=== PATIENT | female | born 1960 | race Caucasian/White ===

== ENCOUNTER 2021-02-25 19:01 | Emergency (ER) | payer OTHER, SELFPAY ==
[2021-02-25 19:03] VITALS: BP 135/79; PULSE 76; RESP 15; TEMP 36.7; O2SAT 98; BMI 27.2
--- NOTE | 2021-02-25 19:11 | EKG12_ITS ---
Test Reason : DYSRHYTHMIA Blood Pressure : / mmHG Vent. Rate : 068 BPM Atrial Rate : 068 BPM P-R Int : 170 ms QRS Dur : 080 ms QT Int : 396 ms P-R-T Axes : 059 048 067 degrees QTc Int : 421 ms Normal sinus rhythm Nonspecific T wave abnormality Abnormal ECG Confirmed by JULIO GÓMEZ, ANNMARIE ([id number]), state editor LUIS PETTIT ([id number]) on 02/28/2021 1:12:04 PM Referred By: JOAO Confirmed By:ANNMARIE KIM MD
--- NOTE | 2021-02-25 20:42 | EX.ED.UPPERE ---
HPI History of Present Illness Chief Complaint: Upper Extremity Injury Detail of Chief Complaint: No injury but the patient has shoulder pain. 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 She is also had a history of breast cancer with mastectomies. She had a DVT in the distant past is on no blood thinners. Several weeks ago she had a viral illness. Around 2 weeks ago she had a liver biopsy done at . Since that time she has had some right-sided abdominal pain. Then she does developed pleuritic chest pain when she was in [place] and was seen in the hospital in [facility]. Had a work-up that was reportedly negative for pulmonary emboli. She is now complaining of still having right-sided chest pain but also right shoulder pain and abdominal pain. Prior similar symptoms: No Recent Illness/Hospitalization: No PFSH PFSH Medical History Auto immune neutropenia Breast adenoma Hepatitis Home Medications Famvir 500 mg PO.IVFORM PRN PRN 02/25/21 [History Last Taken Unknown] cholestyramine-aspartame 4 g PO BID 02/25/21 [History Last Taken Unknown] gabapentin 100 mg PO QHS 02/25/21 [History Last Taken Unknown] hydrocodone-acetaminophen 1 tab PO Q4H PRN 4 Days #14 tab 02/25/21 [Rx Last Taken Unknown] ondansetron 4 mg PO Q8H #10 tab 02/25/21 [Rx Last Taken Unknown] ursodiol 600 mg PO DAILY 02/25/21 [History Last Taken Unknown] Allergy/AdvReac Type Severity Reaction Status Date / Time Opioids - Morphine Analogues AdvReac Vomiting Verified 02/25/21 19:03 Surgical History H/O total mastectomy of left breast H/O total mastectomy of right breast Hip joint replacement status Social History Smoking Status: Never smoker ROS ROS ED ROS Narrative Pleuritic chest pain. Abdominal pain. Review of Systems ROS Unobtainable: Denies due to encephalopathy Constitutional Constitutional ED: Denies chills or fever(s) Eyes Eyes: Denies change in vision ENT ENT ED: Denies ear pain or sore throat Cardiovascular Cardiovascular: Reports chest pain Respiratory/Chest Respiratory/Chest: Denies cough, dyspnea or sputum Gastrointestinal Gastrointestinal: Reports abdominal pain; Denies diarrhea, nausea or vomiting Genitourinary Genitourinary ED: Denies dysuria Musculoskeletal Musculoskeletal: Denies myalgias Integumentary Denies rash Neurologic Neurologic: Denies headache(s) Psychiatric Psychiatric: Denies depression Endocrine Endocrinology: Denies polyuria Hematologic/Lymphatic Hematologic/Lymphatic: Denies easy bruising Allergic/Immunologic Allergic/Immunologic ED: Denies urticaria EXAM Physical Exam Narrative Exam Narrative: 60-year-old female no acute distress. Vital signs stable afebrile. She does not look septic or toxic. H EENT exam unremarkable. Moist with memories. Neck nontender no lymphadenopathy. Lungs clear to auscultation bilaterally. Heart regular rate and rhythm rate about 75 no murmur. Chest wall nontender. Abdomen soft. She does have right-sided tenderness. No peritoneal signs. No signs of obstruction or distention. Normal bowel sounds. Patient moving all 4 extremities. Equal symmetrical radial pulses. Calves are nontender without edema or cords. Back nontender. Neurologically she is awake and alert. Const Vital Signs: 02/25/21 19:03 Temperature 98.0 F Temperature Source Temporal Pulse Rate 76 Respiratory Rate 15 Blood Pressure 135/79 H Blood Pressure Mean 97 Pulse Ox 98 Oxygen Delivery Method Room Air Positive well nourished and well developed; Negative for obese, cachectic, contractures or unkempt General Appearance ED: well developed and NAD; Negative for unkempt, cachectic or contractures Nutritional Appearance: Negative for cachectic or obese HEENT Reports moist mucous membranes normocephalic and atraumatic; Negative for trauma or tenderness Eyes PERRL and EOMs intact bilaterally Neck full ROM and supple General: Negative for tenderness Chest Wall inspection of chest normal and palpation of chest normal Resp normal respiratory effort and clear to auscultation bilaterally Effort and Inspection: Negative for pain with movement Auscultation: Negative for rales, rhonchi or wheezes Cardio regular rate, regular rhythm, S1 normal heart sound, S2 normal heart sound and no murmurs GI non-distended and no masses; Negative for non-tender Inspection: Negative for abdominal distention Palpation: soft and tender; Negative for guarding or rebound tenderness present Back/Spine no CVA tenderness Extremity normal to inspection and full ROM General Extremety ED: Negative for edema General Extremity: Negative for edema Neuro oriented x3, moves all extremities and no focal motor deficits Sensorium / Orientation: alert, oriented to person, oriented to place, oriented to time and stuporous; Negative for orientation impaired or lethargic Psych mental status grossly normal Appearance: Negative for unkempt Skin Lesions: no lesions Rashes: no rashes Trauma: no lacerations or abrasions; Negative for abrasion or laceration MDM MDM MDM Narrative Medical decision making narrative: 60-year-old female status post viral syndrome several weeks ago and then a liver biopsy for autoimmune hepatitis now has abdominal pain with pain in her right shoulder with no signs of trauma to the shoulder and benign shoulder exam. She also has pleuritic chest pain that was recently worked up in [facility] and reportedly was negative for PE. My concern would be a possible subcapsular hematoma from the biopsy given her referred pain to her right shoulder from irritation of the right diaphragm. CAT scan labs are pending.. Attempted to get information from the [facility] in their work-up. Repeat exam patient doing well at 10:30 PM. We went over all of her test results. She will be discharged home with outpatient follow-up. Lab Data Attestation: I reviewed the patient's lab results. Labs: CBC shows a normal white count 6. Hemoglobin 11.9. PT, PTT and INR unremarkable. Chemistries are unremarkable normal gap. Normal creatinine. Liver enzymes are mildly elevated consistent with her autoimmune hepatitis. Chest x-ray and CAT scan are unremarkable. I did review the patient's labs from [facility] they were unremarkable and the CTA of the chest and CAT scan of the abdomen there were unremarkable also. Discharge Plan Triage Chief Complaint: Upper Extremity Injury ED Provider: Adin Gruber Dx/Rx/DC Orders Clinical Impression: Abdominal pain, History of liver biopsy, Autoimmune hepatitis Instructions: Abdominal Pain, ED Pleurisy Prescriptions: New hydrocodone-acetaminophen 5-325 mg tablet 1 tab PO Q4H PRN (Reason: pain) 4 Days Qty: 14 RF: 0 ondansetron 4 mg tablet,disintegrating 4 mg PO Q8H Qty: 10 RF: 0 No Action ursodiol 300 mg Capsule 600 mg PO DAILY RF: 0 gabapentin 100 mg Tablet 100 mg PO QHS RF: 0 cholestyramine-aspartame 4 gram Powder 4 g PO BID RF: 0 Famvir 500 mg PO.IVFORM PRN PRN (Reason: Cold Sores) RF: 0 Primary Care Provider: Alka Burroughs Referrals: lAka Burroughs MD [Primary Care Provider] - 3-5 Days if not improving Activity Restrictions/Additional Instructions: Tylenol and/or Motrin for pain. Follow-up with your physicians. Should progressively improve. Disposition Disposition: Home, Self Care
[2021-02-25] MEDS: 0.9% Normal Saline 1,000 ML 1000 ML IV (20:55)
[2021-02-25] MEDS: Ondansetron 4 MG/2 ML Vial IV (20:55)
[2021-02-25 20:56] LABS: Absolute Neutrophil Count 4.4 X10^3/uL (2.0-7.7); Basophil# 0.08 X10^3/uL; Basophil% 1.2 % (0-1); Eosinophil# 0.33 X10^3/uL; Eosinophils% 4.8 % (0-5); Hematocrit 36.8 % (37-47); Hemoglobin 11.9 g/dL (12.0-15.0); Lymphocyte % 20.3 % (19-41); Mean Corp Hgb Conc 32.3 g/dL (32-36); Mean Corpuscular Hgb 29.8 pg (27.0-32.0); Mean Corpuscular Volume 92.2 fL (81-99); Mean Platelet Vol. 11.9 fl (6.2-12.0); Monocyte# 0.67 X10^3/uL; Monocyte% 9.7 % (0-10); NRBC Flagged by Analyzer 0 % (0-5); Neutrophil # 4.39 X10^3/uL (2.7-7.7); Neutrophil % 63.6 % (47-70); Platelet Count 176 K/mm3 (150-450); RBC Distribution Width CV 13.7 % (11.6-14.6); RBC Distribution Width SD 47.2 fl (35.1-43.9); Red Blood Count 3.99 M/mm3 (4.2-5.4); White Blood Count 6.9 K/mm3 (4.4-11.0)
[2021-02-25] MEDS: morphine 8 MG/ML Syringe IV (20:56)
[2021-02-25 21:08] LABS: International Normalized Ratio 0.9; Partial Thromboplast Time 31.8 Seconds (24.1-36.2); Prothrombin Time (Protime)PT. 11.4 SECONDS (11.7-14.9)
[2021-02-25 21:11] LABS: ALB/GLOB Ratio 0.8 RATIO (0.9-2.4); AST(SGOT) 41 U/L (15-37); Alanine Aminotransfer ALT/SGPT 64 U/L (13-56); Albumin, Serum 2.9 g/dL (3.2-5.0); Alkaline Phosphatase 284 U/L (45-117); Anion Gap 6 (5-15); BUN 15 mg/dL (7-18); BUN/Creat Ratio 22.8 RATIO (10-20); Chloride 106 mmol/L (98-107); Creatinine, Serum 0.66 mg/dL (0.55-1.02); EST Glomerular Filtration Rate 97 mL/min (>60); Est Glom Filt Rate - Afr Amer 117 mL/min (>60); Estimated Creatinine Clearance 85.94 ml/min; Globulin 3.6 g/dL (2.2-4.2); Glucose 150 mg/dL (74-106); Protein, Total 6.5 g/dL (6.4-8.2); Sodium Level 140 mmol/L (136-145)
--- NOTE | 2021-02-25 21:25 | CT_ITS ---
STUDY: CT ABDOMEN AND PELVIS WITH CONTRAST REASON FOR EXAM: Female, 60 years old. Upper quadrant abdominal pain after liver biopsy. RADIATION DOSAGE (If Supplied By Facility): CTDIvol = ( 18.80 ) mGy, DLP = ( 581.06 ) mGycm TECHNIQUE: Transaxial images were obtained from the dome of the diaphragm to the symphysis pubis without oral contrast. IV 100mL Isovue-[id number] was administered. Sagittal and coronal images were reconstructed. Individualized dose optimization techniques were used for this CT. COMPARISON: None. FINDINGS: The visualized lung bases are unremarkable. The visualized portions of the heart are within normal limits. Liver is normal size contour and density. There is tiny hypodensity in segment 6. There is no mass or fluid collection. Normal gallbladder and extrahepatic biliary system. Normal spleen. Normal pancreas. Normal bilateral adrenal glands. Normal right kidney. Normal left kidney. Normal visualized stomach. Normal small intestine. Normal colon. The appendix is visualized and appears normal. Normal abdominal aorta. Normal inferior vena cava. Normal retroperitoneum. Normal urinary bladder. Normal uterus and adnexa. There is no pelvic lymphadenopathy. No free air or free fluid is seen within the peritoneal cavity. Normal abdominal wall. There is anterolisthesis of L5 on S1 with bilateral pars defects. The lumbar spine is otherwise unremarkable. Right total hip replacement. CT/Abdomen/Pelvis W IV Cont ONLY IMPRESSION: 1. A tiny hypodensity in the right liver. No other evidence of right upper quadrant abnormality is noted. 2. Right artificial hip. 3. Anterolisthesis degenerative changes lower lumbar spine. Electronically Signed: Jay Jay López DO at 22:11 EDT Tel [phone], Service support ,
--- NOTE | 2021-02-25 21:30 | RAD_ITS ---
STUDY: X-RAY CHEST REASON FOR EXAM: Female, 60 years old. Thoracic chest pain. TECHNIQUE: Single AP portable view of the chest. COMPARISON: None. FINDINGS: The lungs are clear and expanded. There is no demonstrated pleural abnormality. Normal size heart. Normal mediastinum and robert. Normal visualized pulmonary arteries. Normal visualized aortic arch and descending thoracic aorta. Normal visualized thoracic spine. Normal visualized ribs, clavicles, and shoulders. There is no demonstrated abnormality of the visualized soft tissue structures of the upper abdomen. RAD/Chest 1 View (Portable) IMPRESSION: Normal x-ray examination of the chest. Electronically Signed: Jay Jay López DO at 22:08 EDT Tel [phone], Service support ,
[2021-02-25 22:38] VITALS: RESP 18
[2021-02-25 23:04] VITALS: BP 131/67; PULSE 66; RESP 18; O2SAT 97
== END 2021-02-25 23:05 | disposition home or self-care (01) ==
PROVIDERS: Emergency Provider Emergency Medicine; PCP Internal Medicine
DX: R10.9 Unspecified abdominal pain (principal); Z85.3 Personal history of malignant neoplasm of breast; Z79.899 Other long term (current) drug therapy
CPT/HCPCS: 71045; 74177; 80053; 85025; 85610; 85730; 93005; 96361; 96374; 96375; 99282; J7030; Q9967; A4216; J2405